=== PATIENT | female | born 1995 | race American Indian/Alaskan Native ===

== ENCOUNTER 2020-08-27 19:24 | Emergency (ER) | payer SELFPAY ==
[2020-08-27 20:07] VITALS: BP 126/68
--- NOTE | 2020-08-27 20:13 | Emergency Department Report ---
ED General Adult HPI - General Stated complaint: BACKACHE Time Seen by Provider: 08/27/20 20:09 - History of Present Illness Initial comments: 25 yo AA F pt with hx of Asthma presents with complaints of mid back pain x 2 days. Pt states the pain started after liftign some heavy items at works. She denies any numbness/tingling/weakness in her limbs, saddle parasthesia, loss of bladder/bowel control, urinary symptoms, direct injury to her spine, difficulty with ambulation, or hx of cancer. Pt rates her pain as a 6/10 in severity and states it has not improved with OTC tylenol. - Related Data Previous Rx's Medication Instructions Recorded Last Taken Type Diclofenac Sodium 75 mg PO BID PRN #10 tablet. 08/27/20 Unknown Rx methOCARBAMOL [Robaxin TAB] 1,500 mg PO Q8H PRN #24 tablet 08/27/20 Unknown Rx Allergies Allergy/AdvReac Type Severity Reaction Status Date / Time No Known Allergies Allergy Unverified 07/15/16 10:48 ED Review of Systems ROS: Stated complaint: BACKACHE Other details as noted in HPI Constitutional: denies: chills, diaphoresis, fever, malaise, weakness Respiratory: denies: cough, shortness of breath Cardiovascular: denies: chest pain Endocrine: denies: excessive sweating Gastrointestinal: denies: abdominal pain, nausea, vomiting Genitourinary: denies: urgency, dysuria, frequency, hematuria, abnormal menses Skin: denies: rash, change in color Neurological: denies: weakness, numbness, paresthesias, abnormal gait Hematological/Lymphatic: denies: swollen glands ED Past Medical Hx - Social History Smoking Status: Current Every Day Smoker Substance Use Type: Alcohol - Medications Home Medications: Home Medications Medication Instructions Recorded Confirmed Last Taken Type Diclofenac Sodium 75 mg PO BID PRN #10 tablet. 08/27/20 Unknown Rx methOCARBAMOL [Robaxin TAB] 1,500 mg PO Q8H PRN #24 tablet 08/27/20 Unknown Rx ED Physical Exam - General General appearance: alert, in no apparent distress, obese - Head Head exam: Present: atraumatic, normocephalic - Eye Eye exam: Present: normal appearance. Absent: scleral icterus - Respiratory Respiratory exam: Present: normal lung sounds bilaterally. Absent: respiratory distress - Cardiovascular Cardiovascular Exam: Present: regular rate, normal rhythm - GI/Abdominal GI/Abdominal exam: Present: soft. Absent: tenderness - Extremities Exam Extremities exam: Present: full ROM - Back Exam Back exam: Present: full ROM, paraspinal tenderness (right thoracic,) - Neurological Exam Neurological exam: Present: alert, oriented X3, normal gait. Absent: motor sensory deficit - Expanded Neurological Exam Expanded Sensory exam: Upper Extremity Light Touch: Normal, Lower Extremity Light Touch: Normal Motor strength exam: RUE: 5, LUE: 5, RLE: 5, LLE: 5 - Psychiatric Psychiatric exam: Present: normal affect, normal mood - Skin Skin exam: Present: warm, dry, intact, normal color. Absent: rash ED Course Vital Signs 08/27/20 20:04 Temperature 98.5 F Pulse Rate 80 Respiratory 12 Rate Blood Pressure 126/68 O2 Sat by Pulse 100 Oximetry ED Medical Decision Making - Medical Decision Making 25 yo AA F pt with hx of Asthma presents with complaints of mid back pain x 2 days. Pt states the pain started after liftign some heavy items at works. She denies any numbness/tingling/weakness in her limbs, saddle parasthesia, loss of bladder/bowel control, urinary symptoms, direct injury to her spine, difficulty with ambulation, or hx of cancer. Pt rates her pain as a 6/10 in severity and states it has not improved with OTC tylenol. Pt denies any red flag symptoms. She has full ROM of the spine on exam with a normal neuro exam. No vertebral tenderness or deformities noted on exam. Will treat for muscle strain with nsaids and robaxin. recommend icing and stretching and follow up with PCP. Strict return precautions were discussed in detail with pt who verbalizes understanding. Critical care attestation.: If time is entered above; I have spent that time in minutes in the direct care of this critically ill patient, excluding procedure time. ED Disposition Clinical Impression: Thoracic back sprain Qualifiers: Encounter type: initial encounter Qualified Code(s): S23.9XXA - Sprain of unspecified parts of thorax, initial encounter Disposition: TO HOME OR SELFCARE Is pt being admited?: No Condition: Stable Instructions: Thoracic Strain, Thoracic Strain Rehab-SportsMed Prescriptions: Diclofenac Sodium 75 mg PO BID PRN #10 tablet.dr PERRY Reason: pain methOCARBAMOL [Robaxin TAB] 1,500 mg PO Q8H PRN #24 tablet PRN Reason: muscle spasm/tightness Referrals: [facility] [Provider Group] - 3-5 Days Forms: Work/School Release Form(ED)
== END 2020-08-27 20:48 | disposition home or self-care (01) ==
LOC: ED 19:24
DX: S23.9XXA Sprain of unspecified parts of thorax, initial encounter (principal); F17.200 Nicotine dependence, unspecified, uncomplicated; Z79.899 Other long term (current) drug therapy; X50.0XXA Overexertion from strenuous movement or load, initial encounter; Y93.89 Activity, other specified; Y92.89 Other specified places as the place of occurrence of the external cause; Y99.8 Other external cause status
CPT/HCPCS: 99282

== ENCOUNTER 2022-03-20 18:39 | Emergency (ER) | payer MEDICAID ==
--- NOTE | 2022-03-20 21:48 | Emergency Department Report ---
- General Chief Complaint: Upper Respiratory Infection Stated Complaint: COUGHING/SNEEZING/YELLOW MUCUS PUI?: Yes Time Seen by Provider: 03/20/22 21:26 Source: patient Mode of arrival: Ambulatory Limitations: No Limitations - History of Present Illness Initial Comments: Patient is a 27-year-old female presenting to the emergency department with complaint of cough and congestion. She reports symptoms have been present for the past 2 days. She has not had fever or shortness of breath or chest pain. She does note that she does have sore throat and itching. Patient also reports that she has not been vaccinated for COVID-19. She denies sick contacts. She has history of asthma but has not needed to use her inhaler. - Related Data Previous Rx's Medication Instructions Recorded Last Taken Type Diclofenac Sodium 75 mg PO BID PRN #10 tablet. 08/27/20 Unknown Rx methOCARBAMOL [Robaxin TAB] 1,500 mg PO Q8H PRN #24 tablet 08/27/20 Unknown Rx Allergies Allergy/AdvReac Type Severity Reaction Status Date / Time No Known Allergies Allergy Unverified 07/15/16 10:48 ED Review of Systems ROS: Stated complaint: COUGHING/SNEEZING/YELLOW MUCUS Other details as noted in HPI Constitutional: denies: chills, fever Eyes: denies: eye pain, eye discharge, vision change ENT: throat pain, congestion. denies: ear pain Respiratory: cough. denies: shortness of breath, wheezing Cardiovascular: denies: chest pain, palpitations Endocrine: no symptoms reported Gastrointestinal: denies: abdominal pain, nausea, diarrhea Genitourinary: denies: urgency, dysuria, discharge Musculoskeletal: denies: back pain, joint swelling, arthralgia Skin: denies: rash, lesions Neurological: denies: headache, weakness, paresthesias Psychiatric: denies: anxiety, depression Hematological/Lymphatic: denies: easy bleeding, easy bruising ED Past Medical Hx - Past Medical History Hx Asthma: Yes Additional medical history: Only has one Kidney - Social History Smoking Status: Current Every Day Smoker Substance Use Type: Alcohol - Medications Home Medications: Home Medications Medication Instructions Recorded Confirmed Last Taken Type Diclofenac Sodium 75 mg PO BID PRN #10 tablet. 08/27/20 Unknown Rx methOCARBAMOL [Robaxin TAB] 1,500 mg PO Q8H PRN #24 tablet 08/27/20 Unknown Rx ED Physical Exam - General Limitations: No Limitations General appearance: alert, in no apparent distress - Head Head exam: Present: atraumatic, normocephalic - Eye Eye exam: Present: normal appearance - ENT ENT exam: Present: mucous membranes moist - Neck Neck exam: Present: normal inspection - Respiratory Respiratory exam: Present: normal lung sounds bilaterally. Absent: respiratory distress - Cardiovascular Cardiovascular Exam: Present: regular rate, normal rhythm. Absent: systolic murmur, diastolic murmur, rubs, gallop - GI/Abdominal GI/Abdominal exam: Present: soft, normal bowel sounds - Extremities Exam Extremities exam: Present: normal inspection - Back Exam Back exam: Present: normal inspection - Neurological Exam Neurological exam: Present: alert, oriented X3 - Psychiatric Psychiatric exam: Present: normal affect, normal mood - Skin Skin exam: Present: warm, dry, intact, normal color. Absent: rash ED Course Vital Signs 03/20/22 03/20/22 19:12 22:23 Temperature 97.9 F Pulse Rate 90 84 Respiratory 18 12 Rate Blood Pressure 136/93 Blood Pressure 132/82 [Left] O2 Sat by Pulse 98 100 Oximetry - Reevaluation(s) Reevaluation #1: 03/20/22 22:44 Attempted to call listed number to inform patient strep/flu was negative. Patient did not answer, a message was left. ED Medical Decision Making - Medical Decision Making Patient is a 27-year-old female present emergency department plaint of cough and congestion. She has no evidence of fever, chest pain, shortness of breath. At this time patient is requesting flu and strep test. She also needs a work excuse for Thursday. Differential includes flu, strep, COVID-19. Fortunately we did not test for COVID-19. Given this patient is encouraged to isolate for the next 5 days. Critical care attestation.: If time is entered above; I have spent that time in minutes in the direct care of this critically ill patient, excluding procedure time. ED Disposition Clinical Impression: Viral upper respiratory infection Disposition: HOME / SELF CARE / HOMELESS Is pt being admited?: No Does the pt Need Aspirin: No Condition: Stable Instructions: Viral Respiratory Infection, [id number] Referrals: SIERRA LI MD [Staff Physician] - 3-5 Days Forms: Work/School Release Form(ED)
[2022-03-20 22:24] VITALS: BP 132/82
== END 2022-03-20 22:23 | disposition home or self-care (01) ==
LOC: ED 18:39
DX: J06.9 Acute upper respiratory infection, unspecified (principal); J45.909 Unspecified asthma, uncomplicated; F17.200 Nicotine dependence, unspecified, uncomplicated
CPT/HCPCS: 87116; 87430; 99283; 87502